=== PATIENT | female | born 1945 | race Two or more races ===

== ENCOUNTER → 2017-12-30 | Day surgery (SDC) | payer MEDICARE ==
[~2017-12-30] MED LIST: AMLO10TA6 PO; APIX5TAB PO; ATOR40TA PO; FLUO20CA8 PO; GABA-587 PO; LISI1TAB7 PO; OXYC-323 PO; PROPOFOL 20 ML IV ONE; VALP250S PO
[2017-12-30 15:30] VITALS: BP 114/55
--- NOTE | 2017-12-30 20:11 | CONS ---
DATE OF CONSULTATION: 12/30/2017 REASON FOR CONSULTATION: Improved oropharyngeal dysphagia and wanting G-tube removal. REFERRING PHYSICIAN: Dr. Airam Rudolph. HISTORY OF PRESENT ILLNESS: A 72-year-old female with past medical history significant for hypertension, history of CVA, status post PEG placement, history of hernia repair seen with improved swallowing. She is presently tolerating by mouth and wished to have the G-tube removed, has no additional complaints at the present time. PAST MEDICAL HISTORY: Oropharyngeal dysphagia, hypertension, status post hernia repair. ALLERGIES: None. MEDICATIONS: Include lisinopril/hydrochlorothiazide, Percocet. SOCIAL HISTORY: Retired. Does not drink or smoke. FAMILY HISTORY: Noncontributory. REVIEW OF SYSTEMS: Per records. PHYSICAL EXAMINATION: GENERAL: Reveals a well-nourished, well-developed female, who is alert, cooperative, and in no acute distress. VITAL SIGNS: Pulse 75, respirations 18, blood pressure 130/70. HEENT: Reveals normocephalic and atraumatic head. Pupils and extraocular muscles are not tested. Sclerae are anicteric. NECK: Supple. LUNGS: Clear. CARDIOVASCULAR: Reveals S1, S2 without S3, S4 or appreciable murmur. ABDOMEN: Exam reveals a soft abdomen. Normoactive bowel sounds with an intact G-tube in left upper quadrant and umbilical hernia scar. EXTREMITIES: Reveals no cyanosis, clubbing, or edema. IMPRESSION: Oropharyngeal dysphagia, improved. We will proceed with G-tube removal. Risks and benefits of procedure have been discussed with the patient's family including the risk of hemorrhage or perforation. The patient is willing to proceed. DAI ESTEBAN MD DR: AMBER/otilia JOB#: [id number] / [id number] AIRAM Thomason MD
== END | disposition home or self-care (01) ==
LOC: SURG 14:19
PROVIDERS: ATTEND Internal Medicine Gastroenterology
DX: Z46.59 Encounter for fitting and adjustment of other gastrointestinal appliance and device (principal); K29.50 Unspecified chronic gastritis without bleeding; I10 Essential (primary) hypertension; Z86.73 Personal history of transient ischemic attack (TIA), and cerebral infarction without residual deficits; Z98.890 Other specified postprocedural states; Z79.899 Other long term (current) drug therapy
CPT/HCPCS: 43247; J2704

== ENCOUNTER → 2018-03-12 | Day surgery (SDC) | payer MEDICARE ==
[~2018-03-12] MED LIST changes: +DIVA-53 PO; +HYDROmorphone 2 MG/ML VIAL IV PRN; +IV RINGERS,LACTATED 1000ML 1,000 ML IV SCH; +LIDOCAINE 1% PF 2 ML VIAL. ID PRN; +MORPHINE SULFATE 2 MG/ML VIAL. IV PRN; +ONDANSETRON PF 4 MG/2 ML VIAL. IV PRN; +PROCHLORPERAZINE 10 MG/2 ML VIAL. IV PRN; +Pantoprazole PO; +SUCR1ORA11 PO; +fentaNYL PF VIAL 100 MCG/2 ML VIAL IV PRN
[2018-03-12 14:50] VITALS: BP 107/53
--- NOTE | 2018-03-13 01:44 | CONS ---
DATE OF CONSULTATION: 03/12/2018 REASON FOR CONSULTATION: Gastric ulcer surveillance. REFERRING PHYSICIAN: Marco Rai MD. HISTORY OF PRESENT ILLNESS: A 72-year-old female whose past medical history is significant for AFib, CVA, DVT, hypertension, hyperlipidemia, improved oropharyngeal dysphagia, seen with gastric ulcers. She has been on medical therapy for 2 months. EGD with confirmation of healing is recommended as 2-4% ulcers are in fact gastric malignancies. She denies any additional pain at this time, gives minimal additional history. PAST MEDICAL HISTORY: AFib, status post cerebrovascular accident with improved oropharyngeal dysphagia, DVT, hypertension, hyperlipidemia. ALLERGIES: None. MEDICATIONS: Include amlodipine, Eliquis, atorvastatin, divalproex, Prozac, gabapentin, oxycodone, sucralfate, valproic acid, and pantoprazole. SOCIAL HISTORY: Does not drink or smoke. FAMILY HISTORY: Significant for coronary artery disease, diabetes, and hypertension. REVIEW OF SYSTEMS: Per records. PHYSICAL EXAMINATION: GENERAL: Reveals a well-nourished, well-developed female, who is alert, cooperative, and in no acute distress. VITAL SIGNS: Temperature 99.3, pulse 58, respiratory rate is 18. HEENT: Reveals normocephalic and atraumatic head. Pupils and extraocular muscles are not tested. Sclerae anicteric. NECK: Supple. LUNGS: Clear. CARDIOVASCULAR: Reveals an S1, S2 without S3, S4 or appreciable murmur. ABDOMEN: Reveals a soft abdomen, normal bowel sounds without appreciable hepatosplenomegaly. EXTREMITIES: Reveals no cyanosis, clubbing or edema. IMPRESSION: Gastric ulcer. Surveillance endoscopy to confirm healing is recommended as 2-4% of ulcers are in fact gastric cancers. Risks and benefits of procedure were discussed with patient and family, who are willing to proceed. DAI ESTEBAN MD DR: AMBER/otilia JOB#: [id number] / [id number]
--- NOTE | 2018-03-13 13:19 | PATHOLOGY ---
[facility] Accession Number: [id number] . 01 Material submitted: . GASTRIC ULCER BIOPSY . 01 Clinical history: . Gastric ulcer . 02 Diagnosis: "Gastric ulcer BX", biopsy: - Gastric mucosa with marked reactive/regenerative changes, edema, and mild acute and chronic inflammation. (See comment.) - Negative H. pylori immunohistochemical stain (block A1); control reacted appropriately. . (CLW:yue;03/13/2018) AGA/03/13/2018 . 02 Comment: While focal atypical glandular cells are noted, they are favored to be reactive. No overt epithelial malignancy is identified. Clinical and endoscopic correlation is required. . (CLW:yue;03/13/2018) . 02 Electronically signed: . Annmarie Abdi MD, Pathologist NPI- [id number] . 01 Gross description: . Received in formalin labeled "Lola Morales, gastric ulcer BX," are multiple segments of ayoub soft tissue measuring 1.5 x 0.5 x 0.1 cm in aggregate dimensions. The specimen is filtered and entirely submitted in cassette A1. (TSD; 03/12/2018) TOB/TOB . 02 Pathologist provided ICD-10: K29.00, K29.50 . 02 CPT . 048293, D05002 Specimen Comment: A courtesy copy of this report has been sent to Specimen Comment: [phone], . Specimen Comment: Report sent to / DR LARSON Specimen Comment: A duplicate report has been generated due to demographic updates. Performed at: [address], [place], [place] [id number] MD Ryan Lopez MD Phone: [phone] Performed at: [address] [id number] MD Jose Angel Turcios MD Phone: [phone]
== END ==
LOC: ENDOS 13:05 → EDSTATUS 14:00
PROVIDERS: ATTEND Internal Medicine Gastroenterology
DX: K25.9 Gastric ulcer, unspecified as acute or chronic, without hemorrhage or perforation (principal); K29.50 Unspecified chronic gastritis without bleeding; I10 Essential (primary) hypertension; E78.5 Hyperlipidemia, unspecified; I48.91 Unspecified atrial fibrillation; Z86.73 Personal history of transient ischemic attack (TIA), and cerebral infarction without residual deficits; Z86.718 Personal history of other venous thrombosis and embolism; Z79.899 Other long term (current) drug therapy; Z82.49 Family history of ischemic heart disease and other diseases of the circulatory system; Z83.3 Family history of diabetes mellitus
CPT/HCPCS: 43239; 88305; 88342; J2704

== ENCOUNTER → 2018-06-25 | Day surgery (SDC) | payer MEDICARE ==
[~2018-06-25] MED LIST changes: -AMLO10TA6 PO; +AMLO10TA8 PO; -GABA-587 PO; +GABA-689 PO; -MORPHINE SULFATE 2 MG/ML VIAL. IV PRN; +MORPHINE SULFATE 4 MG/ML VIAL. IV PRN; -OXYC-323 PO; +OXYC1TAB15 PO
[2018-06-25 13:45] VITALS: BP 111/55
--- NOTE | 2018-06-25 19:42 | CONS ---
DATE OF CONSULTATION: REASON FOR AMENDMENT: Premature disconnection from the dictation. ALLERGIES: None. MEDICATIONS: Amlodipine, Eliquis, Lipitor, Prozac, gabapentin, oxycodone, Carafate, valproic, Protonix. FAMILY AND SOCIAL HISTORY: Significant for coronary artery disease, diabetes, hypertension. Nonsmoker, nondrinker. REVIEW OF SYSTEMS: Per records. PHYSICAL EXAMINATION: GENERAL: Reveals a well-developed, well-nourished female, alert, cooperative, no acute distress. VITAL SIGNS: Temperature 99.3, pulse is 70, respirations 20. HEENT: Normocephalic and atraumatic head. Pupils and extraocular muscles are not tested. Sclerae anicteric. NECK: Supple. LUNGS: Clear. CARDIOVASCULAR: Reveals S1, S2 without S3, S4 or appreciable murmur. ABDOMEN: Reveals a soft abdomen, normal bowel sounds without appreciable hepatosplenomegaly. EXTREMITIES: Reveal no cyanosis, clubbing, edema. IMPRESSION: Gastric ulcer. Surveillance endoscopy to confirm healing is recommended as 2-4% gastric ulcers are malignancies. Risks and benefits have been discussed. The patient is willing to proceed at this time. DAI ESTEBAN MD DR: AMBER/otilia JOB#: [id number] / [id number]
--- NOTE | 2018-06-25 19:46 | CONS ---
DATE OF CONSULTATION: 06/25/2018 REASON FOR CONSULTATION: History of gastric ulcer. Surveillance endoscopy. HISTORY OF PRESENT ILLNESS: A 72-year-old female with past medical history significant for AFib; DVT; history of CVA, on Eliquis; has had a PEG removed, is seen after treatment for the gastric ulcer. She is tolerating p.o. She is on sucralfate, Protonix 40 mg daily. Denies any dysphagia, odynophagia, additional complaints presently. PAST MEDICAL HISTORY: AFib, CVA, DVT, hypertension, hyperlipidemia, diverticulosis. ALLERGIES: None. MEDICATIONS: Include amlodipine DICTATION ENDS HERE. DAI ESTEBAN MD DR: AMBER/otilia JOB#: [id number] / [id number]
--- NOTE | 2018-06-26 14:09 | PATHOLOGY ---
[facility] Accession Number: [id number] . 01 Material submitted: . GASTRIC ANTRUM ULCER . 01 Clinical history: . Recurrent ulcer . 02 Diagnosis: Stomach, "gastric antrum ulcer", biopsy: - Superficial fragments of gastric mucosa with mild chronic inflammation and focal ulceration with associated acute ulcer exudate. - No evidence of Helicobacter pylori on immunoperoxidase stain. (SKM:pit 06/26/2018) QTP/06/26/2018 . 02 Electronically signed: . Riky Grimm MD, Pathologist NPI- [id number] . 01 Gross description: . Received in formalin labeled "Lola Morales, gastric antrum ulcer," are multiple segments of ayoub soft tissue measuring 1.2 x 0.1 x 0.1 cm in aggregate dimensions. The specimen is filtered and submitted entirely in cassette A1. (TSD; 06/25/2018) TOB/TOB . 02 Pathologist provided ICD-10: K29.30, K25.3 . 02 CPT . 102294 Specimen Comment: A courtesy copy of this report has been sent to Specimen Comment: [phone], . Specimen Comment: Report sent to / DR RICE Performed at: 01 [facility] [address], [place], [place] [id number] MD Ryan Lopez MD Phone: [phone] Performed at: 02 [facility] [address] [place], [place] [id number] MD Jose Angel Turcios MD Phone: [phone]
== END | disposition home or self-care (01) ==
LOC: ENDOS 11:37
PROVIDERS: ATTEND Internal Medicine Gastroenterology
DX: K25.3 Acute gastric ulcer without hemorrhage or perforation (principal); K25.7 Chronic gastric ulcer without hemorrhage or perforation; K29.30 Chronic superficial gastritis without bleeding; I10 Essential (primary) hypertension; E78.5 Hyperlipidemia, unspecified; Z86.73 Personal history of transient ischemic attack (TIA), and cerebral infarction without residual deficits; Z86.718 Personal history of other venous thrombosis and embolism; I48.91 Unspecified atrial fibrillation; Z79.899 Other long term (current) drug therapy; Z83.3 Family history of diabetes mellitus; Z82.49 Family history of ischemic heart disease and other diseases of the circulatory system
CPT/HCPCS: 43239; 88305; 88342; J2704

== ENCOUNTER 2018-07-03 17:19 | Inpatient (IN) | payer MEDICARE ==
[~2018-07-03] VITALS: Ht 149.9 cm; Wt 62.3 kg
[~2018-07-03 17:19] MED LIST changes: -HYDROmorphone 2 MG/ML VIAL IV PRN; -IV RINGERS,LACTATED 1000ML 1,000 ML IV SCH; -LIDOCAINE 1% PF 2 ML VIAL. ID PRN; -MORPHINE SULFATE 4 MG/ML VIAL. IV PRN; -ONDANSETRON PF 4 MG/2 ML VIAL. IV PRN; -PROCHLORPERAZINE 10 MG/2 ML VIAL. IV PRN; -PROPOFOL 20 ML IV ONE; -fentaNYL PF VIAL 100 MCG/2 ML VIAL IV PRN
[2018-07-03] MEDS ORDERED: IV NORMAL SALINE 1000ML BAG 1,000 ML IV ONE (17:30)
[2018-07-03 17:46] LABS: BILIRUBIN,URINE NEGATIVE (NEG); CLARITY,URINE CLEAR; COLOR,URINE YELLOW; NITRITE,URINE NEGATIVE (NEG); PH,URINE 7.5; PROTEIN,URINE 100 mg/dL (NEG-TRACE)
[2018-07-03 17:54] LABS: AMPHETAMINE/METHAMPHETAMINE NEG (NEG); BARBITURATES NEG (NEG); BENZODIAZEPINES NEG (NEG); CANNABINOIDS NEG (NEG); COCAINE NEG (NEG); METHADONE NEG (NEG); OPIATES NEG (NEG); PHENCYCLIDINE NEG (NEG)
[2018-07-03 17:58] LABS: BACTERIA,URINE 0 /HPF (0-FEW); RBC,URINE OCC /HPF (0-2); WBC,URINE OCC /HPF (0-4)
[2018-07-03 18:31] LABS: BASO % 1 % (0-3); EOS # 0.1 x10^3/uL (0.0-0.7); EOS % 1 % (0-3); HEMATOCRIT 43.2 % (36.0-47.0); HEMOGLOBIN 14.4 g/dL (12.0-15.5); LYMPH # 0.8 x10^3/uL (1.0-4.8); LYMPH % 12 % (24-48); MEAN CORPUSCULAR HEMOGLOBIN 31 pg (25-35); MEAN CORPUSCULAR HGB CONC 33 g/dL (31-37); MEAN CORPUSCULAR VOLUME 94 fL (79-100); MONO # 0.3 x10^3/uL (0.0-1.1); MONO % 5 % (0-9); NEUT # 5.1 x10^3uL (1.8-7.7); NEUT % 81 % (31-73); PLATELET COUNT 197 x10^3/uL (140-400); RED BLOOD COUNT 4.62 x10^6/uL (3.50-5.40); RED CELL DISTRIBUTION WIDTH 14.7 % (11.5-14.5); WHITE BLOOD COUNT 6.3 x10^3/uL (4.0-11.0)
[2018-07-03 18:40] LABS: PROTHROMBIN TIME PATIENT 15.1 SEC (11.7-14.0)
[2018-07-03 19:13] LABS: CREATINE KINASE 27 U/L (26-192)
--- NOTE | 2018-07-03 19:13 | PHYS DOC ---
Past Medical History Past Medical History: Hypertension, Seizure, Stroke, Other Additional Past Medical Histor: hernia, ULCERS Past Surgical History: No Surgical History Alcohol Use: None Drug Use: None Adult General Chief Complaint Chief Complaint: SEIZURE HPI HPI 72-year-old female presents via EMS with report of seizure-like activity at home which occurred at approximate 1630 and lasted 2-3 minutes. Patient does have a history of prior seizures for which she has been taking Depakote. Patient has been weaning down on her dosing of Depakote since the end of March. Patient does report compliance with her medications. Patient denies any current pain. Denies any trauma. Patient is unsure of circumstance that brought her to the ER. Patient does have a history of prior CVA with focal left- sided deficit. Patient does use blood thinner- Eliquis. Denies fever or chills. Denies chest pain. Review of Systems Review of Systems Constitutional: Denies fever or chills [] Eyes: Denies change in visual acuity, redness, or eye pain [] HENT: Denies nasal congestion or sore throat [] Respiratory: Denies cough or shortness of breath [] Cardiovascular: Denies chest pain or palpitations GI: Denies abdominal pain, nausea, vomiting, or diarrhea [] : Denies dysuria or hematuria [] Musculoskeletal: Denies back pain or joint pain [] Integument: Denies rash or skin lesions [] Neurologic: Reports seizure activity; reports LOC Complete systems were reviewed and found to be within normal limits, except as documented in this note. Current Medications Current Medications Current Medications Medications (Trade) Dose Ordered Sig/Kylee Start Time Stop Time Status Last Admin Dose Admin Lorazepam (Ativan) 2 mg STK-MED ONCE 07/03/18 18:12 07/03/18 18:13 DC Sodium Chloride 1,000 ml @ 1,000 mls/hr 1X ONCE 07/03/18 17:30 07/03/18 18:29 DC 07/03/18 17:30 1,000 MLS/HR Allergies Allergies Allergies Coded Allergies Type Severity Reaction Last Updated Verified No Known Drug Allergies 06/25/18 No Physical Exam Physical Exam Constitutional: Well developed, well nourished, no acute distress, non-toxic appearance. [] HENT: Normocephalic, atraumatic, oropharynx moist Eyes: PERRL, EOMI, conjunctiva normal, no discharge. [] Neck: Normal range of motion, no midline tenderness, supple Cardiovascular: Heart rate regular rhythm, no murmur [] Lungs & Thorax: Bilateral breath sounds clear to auscultation [] Abdomen: Soft, no tenderness] Skin: Warm, dry, no erythema, no rash. [] Extremities: No tenderness, no edema. [] Neurologic: Alert and oriented X 3, focal deficits noted to left arm and leg. Strength: LUE 1/5, LLE 2/5, RUE 5/5, and RLE 5/5; reports baseline left sided sensory deficit Psychologic: Affect normal, judgement normal, mood normal. [] Current Patient Data Vital Signs Vital Signs Date Time Temp Pulse Resp B/P (MAP) Pulse Ox O2 Delivery O2 Flow Rate FiO2 07/03/18 17:45 98.2 91 16 118/60 (79) 96 Nasal Cannula 2.0 98.2 Lab Values Laboratory Tests Test 07/03/18 17:35 07/03/18 18:17 Urine Collection Type U cath Urine Color Yellow Urine Clarity Clear Urine pH 7.5 Urine Specific [place] 1.015 Urine Protein 100 mg/dL (NEG-TRACE) Urine Glucose (UA) Negative mg/dL (NEG) Urine Ketones (Stick) Negative mg/dL (NEG) Urine Blood Negative (NEG) Urine Nitrite Negative (NEG) Urine Bilirubin Negative (NEG) Urine Urobilinogen Dipstick 1.0 mg/dL (0.2 mg/dL) Urine Leukocyte Esterase Negative (NEG) Urine RBC Occ /HPF (0-2) Urine WBC Occ /HPF (0-4) Urine Bacteria 0 /HPF (0-FEW) Urine Mucus Slight /LPF Urine Opiates Screen Neg (NEG) Urine Methadone Screen Neg (NEG) Urine Barbiturates Neg (NEG) Urine Phencyclidine Screen Neg (NEG) Urine Amphetamine/Methamphetamine Neg (NEG) Urine Benzodiazepines Screen Neg (NEG) Urine Cocaine Screen Neg (NEG) Urine Cannabinoids Screen Neg (NEG) Urine Ethyl Alcohol Neg (NEG) White Blood Count 6.3 x10^3/uL (4.0-11.0) Red Blood Count 4.62 x10^6/uL (3.50-5.40) Hemoglobin 14.4 g/dL (12.0-15.5) Hematocrit 43.2 % (36.0-47.0) Mean Corpuscular Volume 94 fL (79-100) Mean Corpuscular Hemoglobin 31 pg (25-35) Mean Corpuscular Hemoglobin Concent 33 g/dL (31-37) Red Cell Distribution Width 14.7 % (11.5-14.5) H Platelet Count 197 x10^3/uL (140-400) Neutrophils (%) (Auto) 81 % (31-73) H Lymphocytes (%) (Auto) 12 % (24-48) L Monocytes (%) (Auto) 5 % (0-9) Eosinophils (%) (Auto) 1 % (0-3) Basophils (%) (Auto) 1 % (0-3) Neutrophils # (Auto) 5.1 x10^3uL (1.8-7.7) Lymphocytes # (Auto) 0.8 x10^3/uL (1.0-4.8) L Monocytes # (Auto) 0.3 x10^3/uL (0.0-1.1) Eosinophils # (Auto) 0.1 x10^3/uL (0.0-0.7) Basophils # (Auto) 0.0 x10^3/uL (0.0-0.2) Prothrombin Time 15.1 SEC (11.7-14.0) H Prothrombin Time INR 1.2 (0.8-1.1) H PTT 36 SEC (24-38) Sodium Level 144 mmol/L (136-145) Potassium Level 3.6 mmol/L (3.5-5.1) Chloride Level 104 mmol/L (98-107) Carbon Dioxide Level 30 mmol/L (21-32) Anion Gap 10 (6-14) Blood Urea Nitrogen 16 mg/dL (7-20) Creatinine 0.6 mg/dL (0.6-1.0) Estimated GFR (Cockcroft-Gault) 98.8 BUN/Creatinine Ratio 27 (6-20) H Glucose Level 117 mg/dL (70-99) H Lactic Acid Level 1.9 mmol/L (0.4-2.0) Calcium Level 9.6 mg/dL (8.5-10.1) Magnesium Level 2.0 mg/dL (1.8-2.4) Total Bilirubin 0.3 mg/dL (0.2-1.0) Aspartate Amino Transferase (AST) 20 U/L (15-37) Alanine Aminotransferase (ALT) 18 U/L (14-59) Alkaline Phosphatase 87 U/L (46-116) Ammonia 8 mcmol/L (11-34) L Creatine Kinase 27 U/L (26-192) Creatine Kinase MB (Mass) < 0.5 ng/mL (0.0-3.6) Creatine Kinase MB Relative Index 1.9 % (0-4) Troponin I Quantitative < 0.017 ng/mL (0.000-0.055) Total Protein 7.9 g/dL (6.4-8.2) Albumin 3.3 g/dL (3.4-5.0) L Albumin/Globulin Ratio 0.7 (1.0-1.7) L Valproic Acid Level 35 mcg/mL (50-100) L Valproic Acid Last Dose Date Unk Valproic Acid Last Dose Time Unk Laboratory Tests 07/03/18 18:17 Laboratory Tests 07/03/18 18:17 EKG EKG @1759 NSR at 74bpm, NO ST elevation, baseline artifact Radiology/Procedures Radiology/Procedures PROCEDURE: CT HEAD WO CONTRAST Examination: CT HEAD WO CONTRAST History: seizure activity Comparison/Correlation: None Findings: Axial images of the head were obtained without contrast. Atrophy is present. Mild volume loss ventriculomegaly noted. No intracranial hemorrhage. Extensive right middle cerebral arterial distribution infarct is present. This predominantly involves the posterior right frontoparietal and temporal region. Infarct involvement of the right occipital lobe is also present. Infarct involvement of the right external capsule and right thalamus noted. Mucosal thickening of ethmoid air cells noted. Bony structures are unremarkable. Impression: Extensive right middle cerebral artery distribution infarct is present. There is effacement of the right temporoparietal gyri in particular compatible with late acute or subacute infarct age. PQRS Compliance Statement: One or more of the following individualized dose reduction techniques were utilized for this examination: 1. Automated exposure control 2. Adjustment of the mA and/or kV according to patient size 3. Use of iterative reconstruction technique Electronically signed by: Sina Quezada MD (07/03/2018 7:14 PM) [facility] PROCEDURE: CHEST AP ONLY EXAM: Chest, single view. HISTORY: Altered mental status. COMPARISON: 01/09/2018 FINDINGS: A frontal view of the chest obtained. There is stable mild interstitial prominence without enid congestion. There is mild stable elevation of the right hemidiaphragm. There is no pleural effusion or pneumothorax. The heart is normal in size for portable technique. IMPRESSION: No acute pulmonary finding. Electronically signed by: Zainab Galicia MD (07/03/2018 7:55 PM) [facility] Course & Med Decision Making Course & Med Decision Making Pertinent Labs and Imaging studies reviewed. (See chart for details) Patient with past medical history of seizures presents with report of seizure- like activity while at home which was witnessed by her . The reports lasted approximately 2-3 minutes. Patient has been weaned down on her Depakote. Denies pain at this time. Patient neurologically at baseline. History of significant ischemic stroke with subsequent left-sided deficit. Family and patient reports she is currently at her baseline. CT head without acute process. Chest x-ray clear. Labs obtained and posted to chart. Depakote level noted to be subtherapeutic. Patient requiring admission for further evaluation and treatment. Discussed with Dr. Garcia (hospitalist) who is in agreement with admission. Discussed with Dr. Friend (neurology) regarding. In agreement with consultation. Due to subtherapeutic valproic acid level, Dr. Friend requesting to go back to 500mg BID. Order placed. Discussed findings and plan with patient and family, who acknowledge understanding and agreement. Dragon Disclaimer Dragon Disclaimer This electronic medical record was generated, in whole or in part, using a voice recognition dictation system. Departure Departure Impression: Primary Impression: Breakthrough seizure Disposition: 09 ADMITTED INPATIENT Admitting Physician: Bulmaro Garcia Condition: STABLE Referrals: AIRAM RICE MD (PCP) JOSE ERNANDEZ DO Jul 03, 2018 19:13
[2018-07-03 19:14] LABS: ALBUMIN 3.3 g/dL (3.4-5.0); ALBUMIN/GLOBULIN RATIO 0.7 (1.0-1.7); ALK PHOS 87 U/L (46-116); ALT (SGPT) 18 U/L (14-59); ANION GAP 10 (6-14); AST (SGOT) 20 U/L (15-37); BLOOD UREA NITROGEN 16 mg/dL (7-20); BUN/CREATININE RATIO 27 (6-20); CALCIUM 9.6 mg/dL (8.5-10.1); CARBON DIOXIDE 30 mmol/L (21-32); CHLORIDE 104 mmol/L (98-107); CREATININE 0.6 mg/dL (0.6-1.0); GFR 98.8; GLUCOSE 117 mg/dL (70-99); POTASSIUM 3.6 mmol/L (3.5-5.1); SODIUM 144 mmol/L (136-145); TOTAL BILIRUBIN 0.3 mg/dL (0.2-1.0); TOTAL PROTEIN 7.9 g/dL (6.4-8.2); VAL ACID 35 mcg/mL (50-100)
--- NOTE | 2018-07-03 19:17 | RAD ---
Examination: CT HEAD WO CONTRAST History: seizure activity Comparison/Correlation: None Findings: Axial images of the head were obtained without contrast. Atrophy is present. Mild volume loss ventriculomegaly noted. No intracranial hemorrhage. Extensive right middle cerebral arterial distribution infarct is present. This predominantly involves the posterior right frontoparietal and temporal region. Infarct involvement of the right occipital lobe is also present. Infarct involvement of the right external capsule and right thalamus noted. Mucosal thickening of ethmoid air cells noted. Bony structures are unremarkable. Impression: Extensive right middle cerebral artery distribution infarct is present. There is effacement of the right temporoparietal gyri in particular compatible with late acute or subacute infarct age. PQRS Compliance Statement: One or more of the following individualized dose reduction techniques were utilized for this examination: 1. Automated exposure control 2. Adjustment of the mA and/or kV according to patient size 3. Use of iterative reconstruction technique Electronically signed by: Sina Quezada MD (07/03/2018 7:14 PM) [facility]
[2018-07-03] MEDS ORDERED: ONDANSETRON PF 4 MG/2 ML VIAL. IV PRN (19:30)
--- NOTE | 2018-07-03 19:58 | RAD ---
EXAM: Chest, single view. HISTORY: Altered mental status. COMPARISON: 01/09/2018 FINDINGS: A frontal view of the chest obtained. There is stable mild interstitial prominence without enid congestion. There is mild stable elevation of the right hemidiaphragm. There is no pleural effusion or pneumothorax. The heart is normal in size for portable technique. IMPRESSION: No acute pulmonary finding. Electronically signed by: Zainab Galicia MD (07/03/2018 7:55 PM) [facility]
[2018-07-03 21:00] VITALS: BP 140/53
[2018-07-03] MEDS ORDERED: oxyCODONE/APAP 5/325 1 TAB TABLET PO PRN ×2 (22:15→22:30)
[2018-07-03] MEDS ORDERED: ANTI-COAG MONITOR BY PHARMACY. MC PRN (22:30)
[2018-07-03] MEDS: APIXABAN 5 MG TABLET. PO SCH (22:59)
[2018-07-03] MEDS: DIVALPROEX DELAYED RELEASE 500 MG TABLET.DR. PO SCH (22:59)
[2018-07-03] MEDS ORDERED: GABAPENTIN 400 MG CAPSULE. PO SCH (23:00)
[2018-07-03] MEDS ORDERED: ATORVASTATIN CALCIUM 40 MG TABLET. PO SCH (23:00)
[2018-07-03 23:21] VITALS: BP 141/69
[2018-07-04 03:25] VITALS: BP 135/54
[2018-07-04 07:00] VITALS: BP 114/54
[2018-07-04] MEDS: SUCRALFATE 1 GM TABLET. PO SCH ×2 (07:30→16:37)
[2018-07-04] MEDS: PANTOPRAZOLE 40 MG TABLET.DR. PO SCH ×2 (08:59→16:37)
[2018-07-04] MEDS ORDERED: APIXABAN 5 MG TABLET. PO SCH (09:00)
[2018-07-04] MEDS ORDERED: FLUoxetine HCL 20 MG CAPSULE PO SCH (09:00)
[2018-07-04] MEDS ORDERED: amLODIPine BESYLATE 10 MG TABLET PO SCH (09:00)
[2018-07-04] MEDS: APIXABAN 5 MG TABLET. PO SCH (09:01)
[2018-07-04] MEDS: DIVALPROEX DELAYED RELEASE 500 MG TABLET.DR. PO SCH (09:01)
--- NOTE | 2018-07-04 10:25 | EKG ---
[facility] [address] [place] [address] Test Date: 2018-07-03 Test Time: 17:59:08 Pat Name: LISA RAMÍREZ Department: Room: 671 1 Gender: F Manager Media Relations: : 1945 Requested By: JOSE ERNANDEZ Order Number: [id number] Reading MD: Juancho Matamoros Measurements Intervals [place] Rate: 74 P: NM: QRS: -22 QRSD: 84 T: 28 QT: 482 QTc: 536 Interpretive Statements SINUS RHYTHM LEFTWARD AXIS QRS(T) CONTOUR ABNORMALITY CONSIDER ANTEROLATERAL MYOCARDIAL DAMAGE PROLONGED QT POSSIBLY ABNORMAL ECG Electronically Signed On 07-07-2018 11:08:17 [employer] by Juancho Matamoros
[2018-07-04] MEDS ORDERED: ACETAMINOPHEN 325 MG TABLET. PO PRN (10:30)
[2018-07-04 11:00] VITALS: BP 109/42
--- NOTE | 2018-07-04 11:09 | PDOC1 ---
History and Physical Date of Admission Date of Admission DATE: 07/04/18 TIME: 11:09 Identification/Chief Complaint Chief Complaint SEEN IN ER , 72-year-old female presents via EMS with report of seizure-like activity at home which occurred at approximate 1630 3/ and lasted 2-3 minutes. Patient does have a history of prior seizures for which she has been taking Depakote. has been weaning down on her dosing of Depakote since the end of Past Medical History Past Medical History Past Medical History Past Medical History: Hypertension, Seizure, Stroke, Other Additional Past Medical Histor: hernia, ULCERS Past Surgical History: No Surgical History Alcohol Use: None Drug Use: None family hx htn Cardiovascular: AFIB, HTN, Hyperlipidemia CENTRAL NERVOUS SYSTEM: CVA GI: GERD Past Surgical History Past Surgical History: Hernia Repair, Other Family History Family History: Coronary Artery Disease, Diabetes, Hypertension Social History Smoke: No ALCOHOL: rare Drugs: None Current Problem List Problem List Problems Medical Problems: (1) Breakthrough seizure Status: Acute Current Medications Current Medications Current Medications Sodium Chloride 1,000 ml @ 1,000 mls/hr 1X ONCE IV Last administered on at 17:30; Start 07/03/18 at 17:30; Stop 07/03/18 at 18:29; Status DC Lorazepam (Ativan) 1 mg 1X ONCE IV Last administered on 07/03/18at 18:15; Start 07/03/18 at 18:15; Stop 07/03/18 at 18:16; Status DC Lorazepam (Ativan) 2 mg STK-MED ONCE .ROUTE ; Start 07/03/18 at 18:12; Stop at 18:13; Status DC Ondansetron HCl (Zofran) 4 mg PRN Q8HRS PRN IV NAUSEA/VOMITING; Start 07/03/18 at 19:30; Stop 07/04/18 at 19:29 Divalproex Sodium (Depakote) 500 mg BID PO Last administered on 07/04/18at 09:01 ; Start 07/03/18 at 21:00 Amlodipine Besylate (Norvasc) 10 mg DAILY PO ; Start 07/04/18 at 09:00 Apixaban (Eliquis) 5 mg DAILY PO ; Start 07/04/18 at 09:00; Status Cancel Atorvastatin Calcium (Lipitor) 40 mg QHS PO ; Start 07/03/18 at 23:00 Fluoxetine HCl (PROzac) 20 mg DAILY PO Last administered on 07/04/18at 08:59; Start 07/04/18 at 09:00 Gabapentin (Neurontin) 600 mg HS PO Last administered on 07/03/18at 23:00; Start 07/03/18 at 23:00 Oxycodone/ Acetaminophen (Percocet 5/325) 1 tab PRN Q6HRS PRN PO MODERATE PAIN ; Start 07/03/18 at 22:15 Sucralfate (Carafate) 1 gm BIDAC PO ; Start 07/04/18 at 07:30 Pantoprazole Sodium (Protonix) 40 mg BIDAC PO Last administered on 07/04/18at 08: 59; Start 07/04/18 at 07:30 Info (Anti-Coagulation Monitoring By Pharmacy) 1 each PRN DAILY PRN MC SEE COMMENTS Last administered on 07/03/18at 23:48; Start 07/03/18 at 22:30 Oxycodone/ Acetaminophen (Percocet 5/325) 2 tab PRN Q6HRS PRN PO SEVERE PAIN; Start 07/03/18 at 22:30 Apixaban (Eliquis) 5 mg BID PO Last administered on 07/04/18at 09:01; Start at 23:00 Acetaminophen (Tylenol) 650 mg PRN Q6HRS PRN PO pain Last administered on at 10:31; Start 07/04/18 at 10:30 Active Scripts Active [Pantoprazole] 40 MG Tablet.dr 40 Mg PO BIDAC Percocet 5-325 Mg Tablet (Oxycodone/Acetaminophen) 1 Each Tablet 1-2 Tab PO Q4-6HRS Reported Sucralfate 1 Gm/10 Ml Oral.susp 1 Gm PO BIDAC Divalproex Sodium 500 Mg Tablet. 250 Mg PO DAILY Eliquis (Apixaban) 5 Mg Tablet 5 Mg PO DAILY Depakene (Valproate Sodium) 250 Mg/5 Ml Solution 250 Mg PO Q12HR Gabapentin (Gabapentin) 400 Mg Capsule 600 Mg PO HS Fluoxetine Hcl 20 Mg Capsule 1 Cap PO DAILY Lipitor (Atorvastatin Calcium) 40 Mg Tablet 1 Tab PO QHS Amlodipine Besylate 10 Mg Tablet 10 Mg PO DAILY Allergies Allergies: Coded Allergies: No Known Drug Allergies (Unverified , 06/25/18) ROS Review of System Review of Systems Review of Systems Constitutional: Denies fever or chills [] Eyes: Denies change in visual acuity, redness, or eye pain [] HENT: Denies nasal congestion or sore throat [] Respiratory: Denies cough or shortness of breath [] Cardiovascular: Denies chest pain or palpitations GI: Denies abdominal pain, nausea, vomiting, or diarrhea [] : Denies dysuria or hematuria [] Musculoskeletal: Denies back pain or joint pain [] Integument: Denies rash or skin lesions [] Neurologic: Reports seizure activity; reports LOC 14 PT systems were reviewed and found to be within normal limits, except as documented Physical Exam Physical Exam Physical Exam Physical Exam Constitutional: Well developed, well nourished, no acute distress, non-toxic appearance. [] HENT: Normocephalic, atraumatic, oropharynx moist Eyes: PERRL, EOMI, conjunctiva normal, no discharge. [] Neck: Normal range of motion, no midline tenderness, supple Cardiovascular: Heart rate regular rhythm, no murmur [] Lungs & Thorax: Bilateral breath sounds clear to auscultation [] Abdomen: Soft, no tenderness] Skin: Warm, dry, no erythema, no rash. [] Extremities: No tenderness, no edema. [] Neurologic: Alert and oriented X 3, focal deficits noted to left arm and leg. Strength: LUE 1/5, LLE 2/5, RUE 5/5, and RLE 5/5; reports baseline left sided sensory deficit Psychologic: Affect normal, judgement normal, mood normal. [] Breasts: Not examined Vitals Vitals Vital Signs Date Time Temp Pulse Resp B/P (MAP) Pulse Ox O2 Delivery O2 Flow Rate FiO2 07/04/18 09:00 63 114/54 07/04/18 08:00 Room Air 2.0 07/04/18 07:00 98.2 18 97 98.2 Labs Labs Laboratory Tests Test 07/03/18 17:35 07/03/18 18:17 07/04/18 00:05 07/04/18 02:30 Urine Collection Type U cath Urine Color Yellow Urine Clarity Clear Urine pH 7.5 Urine Specific [place] 1.015 Urine Protein 100 mg/dL (NEG-TRACE) Urine Glucose (UA) Negative mg/dL (NEG) Urine Ketones (Stick) Negative mg/dL (NEG) Urine Blood Negative (NEG) Urine Nitrite Negative (NEG) Urine Bilirubin Negative (NEG) Urine Urobilinogen Dipstick 1.0 mg/dL (0.2 mg/dL) Urine Leukocyte Esterase Negative (NEG) Urine RBC Occ /HPF (0-2) Urine WBC Occ /HPF (0-4) Urine Bacteria 0 /HPF (0-FEW) Urine Mucus Slight /LPF Urine Opiates Screen Neg (NEG) Urine Methadone Screen Neg (NEG) Urine Barbiturates Neg (NEG) Urine Phencyclidine Screen Neg (NEG) Urine Amphetamine/Methamphetamine Neg (NEG) Urine Benzodiazepines Screen Neg (NEG) Urine Cocaine Screen Neg (NEG) Urine Cannabinoids Screen Neg (NEG) Urine Ethyl Alcohol Neg (NEG) White Blood Count 6.3 x10^3/uL (4.0-11.0) Red Blood Count 4.62 x10^6/uL (3.50-5.40) Hemoglobin 14.4 g/dL (12.0-15.5) Hematocrit 43.2 % (36.0-47.0) Mean Corpuscular Volume 94 fL (79-100) Mean Corpuscular Hemoglobin 31 pg (25-35) Mean Corpuscular Hemoglobin Concent 33 g/dL (31-37) Red Cell Distribution Width 14.7 % (11.5-14.5) Platelet Count 197 x10^3/uL (140-400) Neutrophils (%) (Auto) 81 % (31-73) Lymphocytes (%) (Auto) 12 % (24-48) Monocytes (%) (Auto) 5 % (0-9) Eosinophils (%) (Auto) 1 % (0-3) Basophils (%) (Auto) 1 % (0-3) Neutrophils # (Auto) 5.1 x10^3uL (1.8-7.7) Lymphocytes # (Auto) 0.8 x10^3/uL (1.0-4.8) Monocytes # (Auto) 0.3 x10^3/uL (0.0-1.1) Eosinophils # (Auto) 0.1 x10^3/uL (0.0-0.7) Basophils # (Auto) 0.0 x10^3/uL (0.0-0.2) Prothrombin Time 15.1 SEC (11.7-14.0) Prothromb Time International Ratio 1.2 (0.8-1.1) Activated Partial Thromboplast Time 36 SEC (24-38) Sodium Level 144 mmol/L (136-145) Potassium Level 3.6 mmol/L (3.5-5.1) Chloride Level 104 mmol/L (98-107) Carbon Dioxide Level 30 mmol/L (21-32) Anion Gap 10 (6-14) Blood Urea Nitrogen 16 mg/dL (7-20) Creatinine 0.6 mg/dL (0.6-1.0) Estimated GFR (Cockcroft-Gault) 98.8 BUN/Creatinine Ratio 27 (6-20) Glucose Level 117 mg/dL (70-99) Lactic Acid Level 1.9 mmol/L (0.4-2.0) Calcium Level 9.6 mg/dL (8.5-10.1) Magnesium Level 2.0 mg/dL (1.8-2.4) Total Bilirubin 0.3 mg/dL (0.2-1.0) Aspartate Amino Transf (AST/SGOT) 20 U/L (15-37) Alanine Aminotransferase (ALT/SGPT) 18 U/L (14-59) Alkaline Phosphatase 87 U/L (46-116) Ammonia 8 mcmol/L (11-34) Creatine Kinase 27 U/L (26-192) Creatine Kinase MB (Mass) < 0.5 ng/mL (0.0-3.6) Creatine Kinase MB Relative Index 1.9 % (0-4) Troponin I Quantitative < 0.017 ng/mL (0.000-0.055) < 0.017 ng/mL (0.000-0.055) < 0.017 ng/mL (0.000-0.055) Total Protein 7.9 g/dL (6.4-8.2) Albumin 3.3 g/dL (3.4-5.0) Albumin/Globulin Ratio 0.7 (1.0-1.7) Valproic Acid (Depakene) Level 35 mcg/mL (50-100) Valproic Acid Last Dose Date Unk Valproic Acid Last Dose Time Unk Laboratory Tests Test 07/03/18 17:35 3/1/19 18:17 07/04/18 00:05 07/04/18 02:30 Urine Collection Type U cath Urine Color Yellow Urine Clarity Clear Urine pH 7.5 Urine Specific [place] 1.015 Urine Protein 100 mg/dL (NEG-TRACE) Urine Glucose (UA) Negative mg/dL (NEG) Urine Ketones (Stick) Negative mg/dL (NEG) Urine Blood Negative (NEG) Urine Nitrite Negative (NEG) Urine Bilirubin Negative (NEG) Urine Urobilinogen Dipstick 1.0 mg/dL (0.2 mg/dL) Urine Leukocyte Esterase Negative (NEG) Urine RBC Occ /HPF (0-2) Urine WBC Occ /HPF (0-4) Urine Bacteria 0 /HPF (0-FEW) Urine Mucus Slight /LPF Urine Opiates Screen Neg (NEG) Urine Methadone Screen Neg (NEG) Urine Barbiturates Neg (NEG) Urine Phencyclidine Screen Neg (NEG) Urine Amphetamine/Methamphetamine Neg (NEG) Urine Benzodiazepines Screen Neg (NEG) Urine Cocaine Screen Neg (NEG) Urine Cannabinoids Screen Neg (NEG) Urine Ethyl Alcohol Neg (NEG) White Blood Count 6.3 x10^3/uL (4.0-11.0) Red Blood Count 4.62 x10^6/uL (3.50-5.40) Hemoglobin 14.4 g/dL (12.0-15.5) Hematocrit 43.2 % (36.0-47.0) Mean Corpuscular Volume 94 fL (79-100) Mean Corpuscular Hemoglobin 31 pg (25-35) Mean Corpuscular Hemoglobin Concent 33 g/dL (31-37) Red Cell Distribution Width 14.7 % (11.5-14.5) Platelet Count 197 x10^3/uL (140-400) Neutrophils (%) (Auto) 81 % (31-73) Lymphocytes (%) (Auto) 12 % (24-48) Monocytes (%) (Auto) 5 % (0-9) Eosinophils (%) (Auto) 1 % (0-3) Basophils (%) (Auto) 1 % (0-3) Neutrophils # (Auto) 5.1 x10^3uL (1.8-7.7) Lymphocytes # (Auto) 0.8 x10^3/uL (1.0-4.8) Monocytes # (Auto) 0.3 x10^3/uL (0.0-1.1) Eosinophils # (Auto) 0.1 x10^3/uL (0.0-0.7) Basophils # (Auto) 0.0 x10^3/uL (0.0-0.2) Prothrombin Time 15.1 SEC (11.7-14.0) Prothromb Time International Ratio 1.2 (0.8-1.1) Activated Partial Thromboplast Time 36 SEC (24-38) Sodium Level 144 mmol/L (136-145) Potassium Level 3.6 mmol/L (3.5-5.1) Chloride Level 104 mmol/L (98-107) Carbon Dioxide Level 30 mmol/L (21-32) Anion Gap 10 (6-14) Blood Urea Nitrogen 16 mg/dL (7-20) Creatinine 0.6 mg/dL (0.6-1.0) Estimated GFR (Cockcroft-Gault) 98.8 BUN/Creatinine Ratio 27 (6-20) Glucose Level 117 mg/dL (70-99) Lactic Acid Level 1.9 mmol/L (0.4-2.0) Calcium Level 9.6 mg/dL (8.5-10.1) Magnesium Level 2.0 mg/dL (1.8-2.4) Total Bilirubin 0.3 mg/dL (0.2-1.0) Aspartate Amino Transf (AST/SGOT) 20 U/L (15-37) Alanine Aminotransferase (ALT/SGPT) 18 U/L (14-59) Alkaline Phosphatase 87 U/L (46-116) Ammonia 8 mcmol/L (11-34) Creatine Kinase 27 U/L (26-192) Creatine Kinase MB (Mass) < 0.5 ng/mL (0.0-3.6) Creatine Kinase MB Relative Index 1.9 % (0-4) Troponin I Quantitative < 0.017 ng/mL (0.000-0.055) < 0.017 ng/mL (0.000-0.055) < 0.017 ng/mL (0.000-0.055) Total Protein 7.9 g/dL (6.4-8.2) Albumin 3.3 g/dL (3.4-5.0) Albumin/Globulin Ratio 0.7 (1.0-1.7) Valproic Acid (Depakene) Level 35 mcg/mL (50-100) Valproic Acid Last Dose Date Unk Valproic Acid Last Dose Time Unk Images Images EXAM: Chest, single view. HISTORY: Altered mental status. COMPARISON: 01/09/2018 FINDINGS: A frontal view of the chest obtained. There is stable mild interstitial prominence without enid congestion. There is mild stable elevation of the right hemidiaphragm. There is no pleural effusion or pneumothorax. The heart is normal in size for portable technique. IMPRESSION: No acute pulmonary finding. Electronically signed by: Zainab Galicia MD (07/03/2018 7:55 PM) [facility] DICTATED and SIGNED BY: ZAINAB GALICIA MD DATE: 07/03/181954 Radiology/Procedures Radiology/Procedures PROCEDURE: CT HEAD WO CONTRAST Examination: CT HEAD WO CONTRAST History: seizure activity Comparison/Correlation: None Findings: Axial images of the head were obtained without contrast. Atrophy is present. Mild volume loss ventriculomegaly noted. No intracranial hemorrhage. Extensive right middle cerebral arterial distribution infarct is present. This predominantly involves the posterior right frontoparietal and temporal region. Infarct involvement of the right occipital lobe is also present. Infarct involvement of the right external capsule and right thalamus noted. Mucosal thickening of ethmoid air cells noted. Bony structures are unremarkable. Impression: Extensive right middle cerebral artery distribution infarct is present. There is effacement of the right temporoparietal gyri in particular compatible with late acute or subacute infarct age. PQRS Compliance Statement: VTE Prophylaxis Ordered VTE Prophylaxis Devices: Yes VTE Pharmacological Prophylaxi: Contraindicated Assessment/Plan Assessment/Plan Impression: Altered mental status SEIZURE, acute Extensive right middle cerebral artery distribution infarct POA There is effacement of the right temporoparietal gyri on CT hx GI bleed, hematemesis / EGD 01/09 epi, clip and cautery 2017 acute blood loss anemia, upper Hx CVA and dysphagia, left side paralyzed Hx of afib on eliquis, afib, hx DVt, depression HTN CHRONIC PAIN plan seizure precautions neurology consult CONT ELIQUIS TELE DAILY LABS BP CONTROL pt/ot GIORGI PARRISH MD Jul 04, 2018 11:09
[2018-07-04 15:05] VITALS: BP 106/50
--- NOTE | 2018-07-04 15:20 | PDOC2 ---
NEUROLOGY CONSULT Date of Admission Date of Admission DATE: 07/04/18 TIME: 15:00 Reason for Consult Reason for Consult: IMPRESSION: Seizures x 2 on 07/03/18. Metabolic encephalopathy. Large right MCA infarct on 09/01/17, seizure at that time. Left hemiplegia. HTN. HLD. Obesity. RECOMMENDATIONS/PLAN: Increased Depakote to 500 mg bid. Dose adjustment per her neurologist in . She has been treated with Eliquis 5 mg bid. Continue Lipitor 40 mg HS. Neurontin 600 mg HS home regimen. Was on narcotics. OT/PT. Rehab. HISTORY OF THE PRESENT ILLNESS: This is a 72-y-old [place] origin female patient with above medical diseases had a large right MCA territory stroke on or abou 09/01/17 with seizure at that time. She was treated with Depakote 500 mg bid since 09/01/17, but was decreased to 250 mg bid since 03/27/18 due to side effects of sleepiness, then further decreased to 125 mg bid. She had 2 seizures on 07/03/18 described as generalized convulsion with LOC, eyes rolling, and stiffness lasted for several minutes each time. She was brought to the ER of [facility], and Depakote was resumed to 500 mg bid. Past Medical History Cardiovascular: AFIB, HTN, Hyperlipidemia CENTRAL NERVOUS SYSTEM: Right MCA CVA GI: GERD Past Surgical History Hernia Repair (umbilical ), Other (previous peg placement and removal ) Family History Coronary Artery Disease, Diabetes, Hypertension ALLERGY: NKDA MEDICATIONS: Refer to [facility] SOCIAL HISTORY: Lives with family. Denies smoking, drinking, and illicit drug use. REVIEW OF SYSTEMS: Constitutional: No malnutrition, weight loss, cachexia. Head: No traumatic brain or head injury. Skin: No edema, or rash. Ear: No infection. Eyes: No vision loss or color blindness. Nose: No bleeding or purulent discharges. Hearing: No hearing decrease. Neck: No injury. Breast: No history of cancer, masses,or discharges. Cardiac: HTN, HLD. Pulmonary: No COPD. GI: No GI ulcer, GI bleeding. Urinary/genital: No dysuria, hematuria, incontinence, urinary retention, UTI. Endocrinologic: No cousin face, craniofacial dysmorphism, polydactyly. Skeletomuscular: Left side hemiplegia. Neurological: see HP. Psychiatric: Denies drug use/abuse. Otherwise, not [id number] review of systems. PHYSICAL EXAMINATION: General appearance is in no acute distress. HEENT: Normocephalic and nontraumatic. Eyes, nose, ears, and throat are unremarkable. Neck is supple. No lymphadenopathy. No crepitus. Cardiovascular: S1, S2, regular rate and rhythm. Pulmonary: Clear to auscultation bilaterally. Abdomen: Bowel sounds are positive. Abdomen is soft, nontender, and nondistended. Extremities: No rash, lesions, or edema. NEUROLOGICAL EXAMINATION: Drowsiness. Not fully oriented to time, but knew place and person. PERRL. EOMI. CN: Mildly left side VII palsy. Muscle tone: Decreased in left side. No increase tone appreciated. Muscle strength: Left side 2+, right side 5- DTR: 1+ Plantar reflex: Neutral response bilaterally Gait: Unable to walk. Sensory exam: decreased temperature and vibration sense in left UE and lE> No cerebellar signs elicited. F-T-N test fine in right hand. Current Medications Current Medications Current Medications Sodium Chloride 1,000 ml @ 1,000 mls/hr 1X ONCE IV Last administered on at 17:30; Start 07/03/18 at 17:30; Stop 07/03/18 at 18:29; Status DC Lorazepam (Ativan) 1 mg 1X ONCE IV Last administered on 07/03/18at 18:15; Start 07/03/18 at 18:15; Stop 07/03/18 at 18:16; Status DC Lorazepam (Ativan) 2 mg STK-MED ONCE .ROUTE ; Start 07/03/18 at 18:12; Stop at 18:13; Status DC Ondansetron HCl (Zofran) 4 mg PRN Q8HRS PRN IV NAUSEA/VOMITING; Start 07/03/18 at 19:30; Stop 07/04/18 at 19:29 Divalproex Sodium (Depakote) 500 mg BID PO Last administered on 07/04/18at 09:01 ; Start 07/03/18 at 21:00; Stop 07/04/18 at 14:06; Status DC Amlodipine Besylate (Norvasc) 10 mg DAILY PO ; Start 07/04/18 at 09:00 Apixaban (Eliquis) 5 mg DAILY PO ; Start 07/04/18 at 09:00; Status Cancel Atorvastatin Calcium (Lipitor) 40 mg QHS PO ; Start 07/03/18 at 23:00 Fluoxetine HCl (PROzac) 20 mg DAILY PO Last administered on 07/04/18at 08:59; Start 07/04/18 at 09:00 Gabapentin (Neurontin) 600 mg HS PO Last administered on 07/03/18at 23:00; Start 07/03/18 at 23:00 Oxycodone/ Acetaminophen (Percocet 5/325) 1 tab PRN Q6HRS PRN PO MODERATE PAIN ; Start 07/03/18 at 22:15 Sucralfate (Carafate) 1 gm BIDAC PO ; Start 07/04/18 at 07:30 Pantoprazole Sodium (Protonix) 40 mg BIDAC PO Last administered on 07/04/18at 08: 59; Start 07/04/18 at 07:30 Info (Anti-Coagulation Monitoring By Pharmacy) 1 each PRN DAILY PRN MC SEE COMMENTS Last administered on 07/03/18at 23:48; Start 07/03/18 at 22:30 Oxycodone/ Acetaminophen (Percocet 5/325) 2 tab PRN Q6HRS PRN PO SEVERE PAIN; Start 07/03/18 at 22:30 Apixaban (Eliquis) 5 mg BID PO Last administered on 07/04/18at 09:01; Start at 23:00 Acetaminophen (Tylenol) 650 mg PRN Q6HRS PRN PO MILD PAIN Last administered on 07/04/18at 10:31; Start 07/04/18 at 10:30 Divalproex Sodium (Depakote Er) 250 mg DAILY PO ; Start 07/05/18 at 09:00; Status Cancel Non-Formulary Medication (Valproate Sodium (Depakene)) 250 mg Q12HR PO ; Start 07/04/18 at 21:00; Status UNV Divalproex Sodium (Depakote) 500 mg BID PO ; Start 07/04/18 at 21:00 Active Scripts Active [Pantoprazole] 40 MG Tablet.dr 40 Mg PO BIDAC Percocet 5-325 Mg Tablet (Oxycodone/Acetaminophen) 1 Each Tablet 1-2 Tab PO Q4-6HRS Reported Sucralfate 1 Gm/10 Ml Oral.susp 1 Gm PO BIDAC Divalproex Sodium 500 Mg Tablet.dr 250 Mg PO DAILY Eliquis (Apixaban) 5 Mg Tablet 5 Mg PO DAILY Depakene (Valproate Sodium) 250 Mg/5 Ml Solution 250 Mg PO Q12HR Gabapentin (Gabapentin) 400 Mg Capsule 600 Mg PO HS Fluoxetine Hcl 20 Mg Capsule 1 Cap PO DAILY Lipitor (Atorvastatin Calcium) 40 Mg Tablet 1 Tab PO QHS Amlodipine Besylate 10 Mg Tablet 10 Mg PO DAILY Allergies Allergies: Allergies Coded Allergies Type Severity Reaction Last Updated Verified No Known Drug Allergies 06/25/18 No ROS Review of System The patient denies any associated fevers, chills, headache, ear pain, rhinorrhea , sore throat, stiff neck, productive cough, chest pain, shortness of breath, back or flank pain, abdominal pain, nausea, vomiting, diarrhea, constipation, dysuria, rash, numbness, weakness, tingling, incontinence, difficulty ambulating, or diaphoresis. Physical Exam Physical Exam General: Well developed, well nourished, no acute distress, well appearing HEENT: Pupils equally round and reactive to light, EOMI, no discharge, normal conjunctiva Neck: Supple, no nuchal rigidity, no JVD, trachea midline, no tenderness Cardiac: RRR, no murmurs, no gallops, no rubs Chest/Lungs: CTAB, no wheeze, no rhonchi, no crackles Abdomen: soft, non-distended, no guarding, no peritoneal signs, non-tender Back: No tenderness Extremities: no edema, pulses intact, non-tender,capillary refill <3 sec bilateral upper and lower extremities, Neuro: Alert and oriented x 4, no focal deficits, normal speech Vitals Vitals: Vital Signs Date Time Temp Pulse Resp B/P (MAP) Pulse Ox O2 Delivery O2 Flow Rate FiO2 07/04/18 11:00 98.6 70 18 109/42 (64) 97 Room Air 98.6 07/04/18 08:00 2.0 Labs Labs Laboratory Tests Test 07/03/18 17:35 07/03/18 18:17 07/04/18 00:05 07/04/18 02:30 Urine Collection Type U cath Urine Color Yellow Urine Clarity Clear Urine pH 7.5 Urine Specific [place] 1.015 Urine Protein 100 mg/dL (NEG-TRACE) Urine Glucose (UA) Negative mg/dL (NEG) Urine Ketones (Stick) Negative mg/dL (NEG) Urine Blood Negative (NEG) Urine Nitrite Negative (NEG) Urine Bilirubin Negative (NEG) Urine Urobilinogen Dipstick 1.0 mg/dL (0.2 mg/dL) Urine Leukocyte Esterase Negative (NEG) Urine RBC Occ /HPF (0-2) Urine WBC Occ /HPF (0-4) Urine Bacteria 0 /HPF (0-FEW) Urine Mucus Slight /LPF Urine Opiates Screen Neg (NEG) Urine Methadone Screen Neg (NEG) Urine Barbiturates Neg (NEG) Urine Phencyclidine Screen Neg (NEG) Urine Amphetamine/Methamphetamine Neg (NEG) Urine Benzodiazepines Screen Neg (NEG) Urine Cocaine Screen Neg (NEG) Urine Cannabinoids Screen Neg (NEG) Urine Ethyl Alcohol Neg (NEG) White Blood Count 6.3 x10^3/uL (4.0-11.0) Red Blood Count 4.62 x10^6/uL (3.50-5.40) Hemoglobin 14.4 g/dL (12.0-15.5) Hematocrit 43.2 % (36.0-47.0) Mean Corpuscular Volume 94 fL (79-100) Mean Corpuscular Hemoglobin 31 pg (25-35) Mean Corpuscular Hemoglobin Concent 33 g/dL (31-37) Red Cell Distribution Width 14.7 % (11.5-14.5) Platelet Count 197 x10^3/uL (140-400) Neutrophils (%) (Auto) 81 % (31-73) Lymphocytes (%) (Auto) 12 % (24-48) Monocytes (%) (Auto) 5 % (0-9) Eosinophils (%) (Auto) 1 % (0-3) Basophils (%) (Auto) 1 % (0-3) Neutrophils # (Auto) 5.1 x10^3uL (1.8-7.7) Lymphocytes # (Auto) 0.8 x10^3/uL (1.0-4.8) Monocytes # (Auto) 0.3 x10^3/uL (0.0-1.1) Eosinophils # (Auto) 0.1 x10^3/uL (0.0-0.7) Basophils # (Auto) 0.0 x10^3/uL (0.0-0.2) Prothrombin Time 15.1 SEC (11.7-14.0) Prothromb Time International Ratio 1.2 (0.8-1.1) Activated Partial Thromboplast Time 36 SEC (24-38) Sodium Level 144 mmol/L (136-145) Potassium Level 3.6 mmol/L (3.5-5.1) Chloride Level 104 mmol/L (98-107) Carbon Dioxide Level 30 mmol/L (21-32) Anion Gap 10 (6-14) Blood Urea Nitrogen 16 mg/dL (7-20) Creatinine 0.6 mg/dL (0.6-1.0) Estimated GFR (Cockcroft-Gault) 98.8 BUN/Creatinine Ratio 27 (6-20) Glucose Level 117 mg/dL (70-99) Lactic Acid Level 1.9 mmol/L (0.4-2.0) Calcium Level 9.6 mg/dL (8.5-10.1) Magnesium Level 2.0 mg/dL (1.8-2.4) Total Bilirubin 0.3 mg/dL (0.2-1.0) Aspartate Amino Transf (AST/SGOT) 20 U/L (15-37) Alanine Aminotransferase (ALT/SGPT) 18 U/L (14-59) Alkaline Phosphatase 87 U/L (46-116) Ammonia 8 mcmol/L (11-34) Creatine Kinase 27 U/L (26-192) Creatine Kinase MB (Mass) < 0.5 ng/mL (0.0-3.6) Creatine Kinase MB Relative Index 1.9 % (0-4) Troponin I Quantitative < 0.017 ng/mL (0.000-0.055) < 0.017 ng/mL (0.000-0.055) < 0.017 ng/mL (0.000-0.055) Total Protein 7.9 g/dL (6.4-8.2) Albumin 3.3 g/dL (3.4-5.0) Albumin/Globulin Ratio 0.7 (1.0-1.7) Valproic Acid (Depakene) Level 35 mcg/mL (50-100) Valproic Acid Last Dose Date Unk Valproic Acid Last Dose Time Unk Laboratory Tests Test 3/1/19 17:35 07/03/18 18:17 07/04/18 00:05 07/04/18 02:30 Urine Collection Type U cath Urine Color Yellow Urine Clarity Clear Urine pH 7.5 Urine Specific [place] 1.015 Urine Protein 100 mg/dL (NEG-TRACE) Urine Glucose (UA) Negative mg/dL (NEG) Urine Ketones (Stick) Negative mg/dL (NEG) Urine Blood Negative (NEG) Urine Nitrite Negative (NEG) Urine Bilirubin Negative (NEG) Urine Urobilinogen Dipstick 1.0 mg/dL (0.2 mg/dL) Urine Leukocyte Esterase Negative (NEG) Urine RBC Occ /HPF (0-2) Urine WBC Occ /HPF (0-4) Urine Bacteria 0 /HPF (0-FEW) Urine Mucus Slight /LPF Urine Opiates Screen Neg (NEG) Urine Methadone Screen Neg (NEG) Urine Barbiturates Neg (NEG) Urine Phencyclidine Screen Neg (NEG) Urine Amphetamine/Methamphetamine Neg (NEG) Urine Benzodiazepines Screen Neg (NEG) Urine Cocaine Screen Neg (NEG) Urine Cannabinoids Screen Neg (NEG) Urine Ethyl Alcohol Neg (NEG) White Blood Count 6.3 x10^3/uL (4.0-11.0) Red Blood Count 4.62 x10^6/uL (3.50-5.40) Hemoglobin 14.4 g/dL (12.0-15.5) Hematocrit 43.2 % (36.0-47.0) Mean Corpuscular Volume 94 fL (79-100) Mean Corpuscular Hemoglobin 31 pg (25-35) Mean Corpuscular Hemoglobin Concent 33 g/dL (31-37) Red Cell Distribution Width 14.7 % (11.5-14.5) Platelet Count 197 x10^3/uL (140-400) Neutrophils (%) (Auto) 81 % (31-73) Lymphocytes (%) (Auto) 12 % (24-48) Monocytes (%) (Auto) 5 % (0-9) Eosinophils (%) (Auto) 1 % (0-3) Basophils (%) (Auto) 1 % (0-3) Neutrophils # (Auto) 5.1 x10^3uL (1.8-7.7) Lymphocytes # (Auto) 0.8 x10^3/uL (1.0-4.8) Monocytes # (Auto) 0.3 x10^3/uL (0.0-1.1) Eosinophils # (Auto) 0.1 x10^3/uL (0.0-0.7) Basophils # (Auto) 0.0 x10^3/uL (0.0-0.2) Prothrombin Time 15.1 SEC (11.7-14.0) Prothromb Time International Ratio 1.2 (0.8-1.1) Activated Partial Thromboplast Time 36 SEC (24-38) Sodium Level 144 mmol/L (136-145) Potassium Level 3.6 mmol/L (3.5-5.1) Chloride Level 104 mmol/L (98-107) Carbon Dioxide Level 30 mmol/L (21-32) Anion Gap 10 (6-14) Blood Urea Nitrogen 16 mg/dL (7-20) Creatinine 0.6 mg/dL (0.6-1.0) Estimated GFR (Cockcroft-Gault) 98.8 BUN/Creatinine Ratio 27 (6-20) Glucose Level 117 mg/dL (70-99) Lactic Acid Level 1.9 mmol/L (0.4-2.0) Calcium Level 9.6 mg/dL (8.5-10.1) Magnesium Level 2.0 mg/dL (1.8-2.4) Total Bilirubin 0.3 mg/dL (0.2-1.0) Aspartate Amino Transf (AST/SGOT) 20 U/L (15-37) Alanine Aminotransferase (ALT/SGPT) 18 U/L (14-59) Alkaline Phosphatase 87 U/L (46-116) Ammonia 8 mcmol/L (11-34) Creatine Kinase 27 U/L (26-192) Creatine Kinase MB (Mass) < 0.5 ng/mL (0.0-3.6) Creatine Kinase MB Relative Index 1.9 % (0-4) Troponin I Quantitative < 0.017 ng/mL (0.000-0.055) < 0.017 ng/mL (0.000-0.055) < 0.017 ng/mL (0.000-0.055) Total Protein 7.9 g/dL (6.4-8.2) Albumin 3.3 g/dL (3.4-5.0) Albumin/Globulin Ratio 0.7 (1.0-1.7) Valproic Acid (Depakene) Level 35 mcg/mL (50-100) Valproic Acid Last Dose Date [place] Valproic Acid Last Dose Time LAI Calderon MD Jul 04, 2018 15:20
--- NOTE | 2018-07-04 19:10 | NUR ---
per dr salmeron, pt is discharged home with self care. called script for 500 mg once daily depakote to the [facility] the [employer] [facility] [place]. left VM because the pharm was closed. pt wheeled down to the main entyrance to be picked up by family. Billy Feliciano RN
[2018-07-04] MEDS ORDERED: VALPROATE SODIUM 250 MG PO SCH (21:00)
[2018-07-04] MEDS ORDERED: DIVALPROEX DELAYED RELEASE 500 MG TABLET.DR. PO SCH (21:00)
[2018-07-05] MEDS ORDERED: DIVALPROEX EXTENDED RELEASE 250 MG TAB.ER.24H. PO SCH (09:00)
== END 2018-07-04 19:12 | disposition home or self-care (01) | DRG 100 ==
LOC: ER 17:19 → 6 SOUTH 19:22
PROVIDERS: ADMIT Internal Medicine; ATTEND Internal Medicine
DX: G40.89 Other seizures (principal); G93.41 Metabolic encephalopathy; I69.354 Hemiplegia and hemiparesis following cerebral infarction affecting left non-dominant side; E66.9 Obesity, unspecified; I48.91 Unspecified atrial fibrillation; E78.5 Hyperlipidemia, unspecified; F32.9 Major depressive disorder, single episode, unspecified; G89.29 Other chronic pain; I10 Essential (primary) hypertension; K21.9 Gastro-esophageal reflux disease without esophagitis; Z79.01 Long term (current) use of anticoagulants; Z79.899 Other long term (current) drug therapy; Z82.49 Family history of ischemic heart disease and other diseases of the circulatory system; Z83.3 Family history of diabetes mellitus; Z86.718 Personal history of other venous thrombosis and embolism; Z93.1 Gastrostomy status; Z68.27 Body mass index [BMI] 27.0-27.9, adult; I69.321 Dysphasia following cerebral infarction
CPT/HCPCS: 36415; 70450; 71045; 80053; 80164; 80307; 81001; 82140; 82553; 83605; 83735; 84484; 85025; 85610; 85730; 93005; 96361; 96374; J2060; J7030; 99285-25

== ENCOUNTER 2018-12-16 10:16 | Emergency (ER) | payer MEDICARE ==
[~2018-12-16] VITALS: Ht 149.9 cm; Wt 63.5 kg
[2018-12-16] MEDS ORDERED: IV NORMAL SALINE 1000ML BAG 1,000 ML IV SCH (11:11)
[2018-12-16] MEDS ORDERED: ONDANSETRON PF 4 MG/2 ML VIAL. IV ONE (11:15)
--- NOTE | 2018-12-16 11:18 | PHYS DOC ---
Past Medical History Past Medical History: CVA, Hypertension, Seizure, Stroke, Other Additional Past Medical Histor: hernia, ULCERS Past Surgical History: No Surgical History Alcohol Use: None Drug Use: None Adult General Chief Complaint Chief Complaint: MULTIPLE COMPLAINTS HPI HPI Patient is a 73-year-old female who presents to the emergency department for evaluation. She states that on Friday, she vomited once and vomited twice, again early this morning. She states that she has not had any blood in her emesis, and has been having normal bowel movements. She has not had any pain. She might of had a headache a few days ago she is uncertain. She has not had any new vision changes, new numbness, or new weakness. She does have left-sided deficits from a prior stroke. She does not have a headache currently. She has not had any abdominal pain. She does take Eliquis, as well as other medications. She has had a seizure in the past and is on Depakote. There are no alleviating or exacerbating factors to her symptoms. Review of Systems Review of Systems Constitutional: Denies fever or chills [] Eyes: Denies change in visual acuity, redness, or eye pain [] HENT: Denies nasal congestion or sore throat [] Respiratory: Denies cough or shortness of breath [] Cardiovascular: The patient denies any shortness of breath, chest pain, palpitations, or orthopnea [] GI: Denies abdominal pain, bloody stools or diarrhea [] : Denies dysuria or hematuria [] Musculoskeletal: Denies back pain or joint pain [] Integument: Denies rash or skin lesions [] Neurologic: Denies headache, new focal weakness or sensory changes [] Endocrine: Denies polyuria or polydipsia [] All other systems were reviewed and found to be within normal limits, except as documented in this note. Current Medications Current Medications Current Medications Medications (Trade) Dose Ordered Sig/Kylee Start Time Stop Time Status Last Admin Dose Admin Ondansetron HCl (Zofran) 4 mg 1X ONCE 12/16/18 11:15 12/16/18 11:16 DC 12/16/18 12:02 4 MG Sodium Chloride 1,000 ml @ 100 mls/hr Q10H 12/16/18 11:11 12/16/18 21:10 12/16/18 12:02 100 MLS/HR Allergies Allergies Allergies Coded Allergies Type Severity Reaction Last Updated Verified No Known Drug Allergies 06/25/18 No Physical Exam Physical Exam PHYSICAL EXAM: CONSTITUTIONAL: Well developed, well nourished HEAD: normocephalic, atraumatic EENT: PERRL, EOMI. Conjunctivae normal color, sclerae non-icteric; moist mucous membranes. NECK: Supple, non-tender; no meningismus. LUNGS: Lungs CTA, breathing even and unlabored. Normal air movement. HEART: Regular rate and rhythm, no murmur CHEST: No deformity; non-tender ABDOMEN: The abdomen is soft, and non-tender, no masses or bruits. Davis sign is absent. The lower abdomen is nontender. Normal bowel sounds are present. EXTREM: Normal ROM; no deformity, no calf tenderness. Normal pulses palpable in all extremities. There is no pedal edema. SKIN: No rash; no diaphoresis NEURO: Alert; normal speech and cognition; CN's grossly intact; there is chronic left-sided weakness, otherwise strength grossly intact without other focal deficit. BACK: No CVA TTP. Current Patient Data Vital Signs Vital Signs Date Time Temp Pulse Resp B/P (MAP) Pulse Ox O2 Delivery O2 Flow Rate FiO2 12/16/18 11:00 98.0 72 16 161/74 (103) 95 Room Air 98.0 Lab Values Laboratory Tests Test 12/16/18 11:25 12/16/18 12:40 White Blood Count 6.5 x10^3/uL (4.0-11.0) Red Blood Count 4.86 x10^6/uL (3.50-5.40) Hemoglobin 15.6 g/dL (12.0-15.5) H Hematocrit 45.6 % (36.0-47.0) Mean Corpuscular Volume 94 fL (79-100) Mean Corpuscular Hemoglobin 32 pg (25-35) Mean Corpuscular Hemoglobin Concent 34 g/dL (31-37) Red Cell Distribution Width 13.0 % (11.5-14.5) Platelet Count 196 x10^3/uL (140-400) Neutrophils (%) (Auto) 84 % (31-73) H Lymphocytes (%) (Auto) 9 % (24-48) L Monocytes (%) (Auto) 7 % (0-9) Eosinophils (%) (Auto) 0 % (0-3) Basophils (%) (Auto) 1 % (0-3) Neutrophils # (Auto) 5.5 x10^3/uL (1.8-7.7) Lymphocytes # (Auto) 0.6 x10^3/uL (1.0-4.8) L Monocytes # (Auto) 0.4 x10^3/uL (0.0-1.1) Eosinophils # (Auto) 0.0 x10^3/uL (0.0-0.7) Basophils # (Auto) 0.0 x10^3/uL (0.0-0.2) Sodium Level 137 mmol/L (136-145) Potassium Level 3.7 mmol/L (3.5-5.1) Chloride Level 98 mmol/L (98-107) Carbon Dioxide Level 29 mmol/L (21-32) Anion Gap 10 (6-14) Blood Urea Nitrogen 14 mg/dL (7-20) Creatinine 0.7 mg/dL (0.6-1.0) Estimated GFR (Cockcroft-Gault) 82.5 BUN/Creatinine Ratio 20 (6-20) Glucose Level 163 mg/dL (70-99) H Calcium Level 9.6 mg/dL (8.5-10.1) Total Bilirubin 0.5 mg/dL (0.2-1.0) Aspartate Amino Transferase (AST) 18 U/L (15-37) Alanine Aminotransferase (ALT) 18 U/L (14-59) Alkaline Phosphatase 63 U/L (46-116) Troponin I Quantitative < 0.017 ng/mL (0.000-0.055) Total Protein 7.9 g/dL (6.4-8.2) Albumin 3.4 g/dL (3.4-5.0) Albumin/Globulin Ratio 0.8 (1.0-1.7) L Lipase 68 U/L (73-393) L Valproic Acid Level 38 mcg/mL (50-100) L Valproic Acid Last Dose Date 12/16/18 Valproic Acid Last Dose Time 1111 Urine Collection Type U cath Urine Color Yellow Urine Clarity Clear Urine pH 7.0 Urine Specific [place] 1.010 Urine Protein Negative mg/dL (NEG-TRACE) Urine Glucose (UA) Negative mg/dL (NEG) Urine Ketones (Stick) Negative mg/dL (NEG) Urine Blood Negative (NEG) Urine Nitrite Positive (NEG) Urine Bilirubin Negative (NEG) Urine Urobilinogen Dipstick 0.2 mg/dL (0.2 mg/dL) Urine Leukocyte Esterase Small (NEG) Urine RBC 0 /HPF (0-2) Urine WBC 5-10 /HPF (0-4) Urine Bacteria Few /HPF (0-FEW) Laboratory Tests 12/16/18 11:25 Laboratory Tests 12/16/18 11:25 EKG EKG Normal sinus rhythm a rate of 77 beats for minute, left axis deviation, normal intervals, nonspecific ST/T changes are present. Motion artifact/tremor degrades the quality of the EKG.[] Radiology/Procedures Radiology/Procedures [ROCEDURE: CT HEAD WO CONTRAST EXAM: CT Head without IV contrast CLINICAL HISTORY: Nausea, vomiting, hypertension COMPARISON: CT head 07/03/2018 TECHNIQUE: Routine CT of the head without contrast. Soft tissues and bone windows were reviewed. PQRS compliance statement - One or more of the following individualized dose reduction techniques were utilized for this study: 1. Automated exposure control 2. Adjustment of the mA and/or kV according to patient size 3. Use of iterative reconstruction technique FINDINGS: Diffuse encephalomalacia and loss of lott-white differentiation in the right frontal, parietal and temporal regions from known chronic right infarct. Superimposed acute infarct would be difficult to exclude by CT. Subcortical, periventricular and deep white matter hypoattenuation may be seen with chronic small vessel disease. There is no evidence of hemorrhage, mass or extra-axial fluid collection. There is no mass effect or shift of the intracranial structures. There is prominence of the ventricles and sulci bilaterally consistent with generalized atrophy. The cerebellum and brainstem are unremarkable. The calvarium demonstrates no evidence of fracture or focal lesion. There is normal aeration of the visualized paranasal sinuses and mastoid air cells. The visualized portions of the orbits are normal. IMPRESSION: 1. Chronic appearing right sided infarct. Superimposed acute infarct cannot be excluded by CT imaging. If there is clinical concern for acute ischemia, MRI is recommended.] Course & Med Decision Making Course & Med Decision Making Pertinent Labs and Imaging studies reviewed. (See chart for details) 1:25 PM: The patient's condition remained stable. She did not take her morning blood pressure medication or other medications, which I encouraged her to do upon returning home. She is no longer nauseated at this time. I discussed test results, the need for close follow-up, and return precautions.[] Dragon Disclaimer Dragon Disclaimer This electronic medical record was generated, in whole or in part, using a voice recognition dictation system. Departure Departure Impression: Primary Impression: Nausea & vomiting Additional Impression: UTI (urinary tract infection) Disposition: HOME, SELF-CARE Condition: STABLE Referrals: AIRAM RICE MD (PCP) Patient Instructions: Nausea and Vomiting, Urinary Tract Infection Scripts Ondansetron Hcl (ZOFRAN) 4 Mg Tablet 1 TAB PO Q6HRS PRN for NAUSEA/VOMITING, #20 TAB Prov: GREG JACOME MD 12/16/18 Sulfamethoxazole/Trimethoprim (BACTRIM DS TABLET) 1 Each Tablet 1 TAB PO BID, #14 TAB Prov: GREG JACOME MD 12/16/18 Problem Qualifiers GREG JACOME MD Dec 16, 2018 11:18
[2018-12-16 11:46] LABS: BASO % 1 % (0-3); EOS % 0 % (0-3); HEMATOCRIT 45.6 % (36.0-47.0); HEMOGLOBIN 15.6 g/dL (12.0-15.5); LYMPH # 0.6 x10^3/uL (1.0-4.8); LYMPH % 9 % (24-48); MEAN CORPUSCULAR HEMOGLOBIN 32 pg (25-35); MEAN CORPUSCULAR HGB CONC 34 g/dL (31-37); MEAN CORPUSCULAR VOLUME 94 fL (79-100); MONO # 0.4 x10^3/uL (0.0-1.1); MONO % 7 % (0-9); NEUT # 5.5 x10^3/uL (1.8-7.7); NEUT % 84 % (31-73); PLATELET COUNT 196 x10^3/uL (140-400); RED BLOOD COUNT 4.86 x10^6/uL (3.50-5.40); WHITE BLOOD COUNT 6.5 x10^3/uL (4.0-11.0)
[2018-12-16 11:55] LABS: ANION GAP 10 (6-14); BLOOD UREA NITROGEN 14 mg/dL (7-20); BUN/CREATININE RATIO 20 (6-20); CALCIUM 9.6 mg/dL (8.5-10.1); CARBON DIOXIDE 29 mmol/L (21-32); CHLORIDE 98 mmol/L (98-107); CREATININE 0.7 mg/dL (0.6-1.0); GFR 82.5; GLUCOSE 163 mg/dL (70-99); POTASSIUM 3.7 mmol/L (3.5-5.1); SODIUM 137 mmol/L (136-145)
--- NOTE | 2018-12-16 11:55 | EKG ---
[facility] [address] [place] [id number] Test Date: 2018-12-16 Test Time: 11:23:05 Pat Name: LISA RAMÍREZ Department: Room: Gender: F Payable Representative: : 1945 Requested By: GREG JACOME Order Number: [id number] Reading MD: Measurements Intervals [place] Rate: 77 P: 35 IA: 128 QRS: -37 QRSD: 106 T: -21 QT: 470 QTc: 534 Interpretive Statements SINUS RHYTHM ABNORMAL LEFT AXIS DEVIATION T ABNORMALITY IN ANTERIOR LEADS INFERIOR LEADS PROLONGED QT ABNORMAL ECG No previous ECG available for comparison
[2018-12-16 12:00] LABS: ALBUMIN 3.4 g/dL (3.4-5.0); ALBUMIN/GLOBULIN RATIO 0.8 (1.0-1.7); ALK PHOS 63 U/L (46-116); ALT (SGPT) 18 U/L (14-59); AST (SGOT) 18 U/L (15-37); LIPASE 68 U/L (73-393); TOTAL BILIRUBIN 0.5 mg/dL (0.2-1.0); TOTAL PROTEIN 7.9 g/dL (6.4-8.2)
--- NOTE | 2018-12-16 12:01 | RAD ---
EXAM: CT Head without IV contrast CLINICAL HISTORY: Nausea, vomiting, hypertension COMPARISON: CT head 07/03/2018 TECHNIQUE: Routine CT of the head without contrast. Soft tissues and bone windows were reviewed. PQRS compliance statement - One or more of the following individualized dose reduction techniques were utilized for this study: 1. Automated exposure control 2. Adjustment of the mA and/or kV according to patient size 3. Use of iterative reconstruction technique FINDINGS: Diffuse encephalomalacia and loss of lott-white differentiation in the right frontal, parietal and temporal regions from known chronic right infarct. Superimposed acute infarct would be difficult to exclude by CT. Subcortical, periventricular and deep white matter hypoattenuation may be seen with chronic small vessel disease. There is no evidence of hemorrhage, mass or extra-axial fluid collection. There is no mass effect or shift of the intracranial structures. There is prominence of the ventricles and sulci bilaterally consistent with generalized atrophy. The cerebellum and brainstem are unremarkable. The calvarium demonstrates no evidence of fracture or focal lesion. There is normal aeration of the visualized paranasal sinuses and mastoid air cells. The visualized portions of the orbits are normal. IMPRESSION: 1. Chronic appearing right sided infarct. Superimposed acute infarct cannot be excluded by CT imaging. If there is clinical concern for acute ischemia, MRI is recommended. Electronically signed by: Jian Easton MD (12/16/2018 11:58 AM) [facility]
[2018-12-16 12:21] LABS: VAL ACID 38 mcg/mL (50-100)
[2018-12-16 12:52] LABS: BILIRUBIN,URINE NEGATIVE (NEG); CLARITY,URINE CLEAR; COLOR,URINE YELLOW; NITRITE,URINE POSITIVE (NEG); PROTEIN,URINE NEGATIVE (NEG-TRACE); UROBILINOGEN,URINE 0.2 mg/dL (0.2 mg/dL)
[2018-12-16 13:06] LABS: BACTERIA,URINE FEW /HPF (0-FEW); RBC,URINE 0 /HPF (0-2)
[2018-12-16 13:15] VITALS: BP 161/69
[2018-12-16] MEDS ORDERED: ONDA4TAB7 PO (13:28)
[2018-12-16] MEDS ORDERED: SULF1TAB24 PO (13:28)
== END 2018-12-16 13:50 | disposition home or self-care (01) ==
LOC: ER 10:16
DX: N39.0 Urinary tract infection, site not specified (principal); R11.2 Nausea with vomiting, unspecified; R51 Headache; I10 Essential (primary) hypertension; Z86.73 Personal history of transient ischemic attack (TIA), and cerebral infarction without residual deficits; Z98.890 Other specified postprocedural states
CPT/HCPCS: 36415; 70450; 80053; 80164; 81001; 83690; 84484; 85025; 87086; 93005; 96361; 96374; 99285; J2405; J7030

== ENCOUNTER → 2019-01-20 | Outpatient (CLI) | payer MEDICARE ==
[~2019-01-20] MED LIST changes: +LISI1TAB20 PO; -LISI1TAB7 PO; +ONDA4TAB7 PO; +SULF1TAB24 PO
--- NOTE | 2019-01-20 15:58 | KCIC ---
PA and lateral chest x-ray compared to portable chest radiograph dated July 03, 2018 for cough. FINDINGS: There are coarse perihilar interstitial changes, which could reflect pulmonary vascular congestion or developing perihilar infiltrates. There is elevation the right hemidiaphragm. Heart size is mildly enlarged. No definite pleural effusions. No pneumothorax. No significant osseous abnormalities. IMPRESSION: 1. Perihilar coarse interstitial changes possibly due to developing central vascular congestion versus perihilar infiltrates. Electronically signed by: Niko Kelley MD (01/20/2019 3:55 PM) [facility]
== END | disposition home or self-care (01) ==
LOC: KCIC 10:18
PROVIDERS: ATTEND Family Medicine
DX: I11.9 Hypertensive heart disease without heart failure (principal)
CPT/HCPCS: 71046

== ENCOUNTER 2019-04-01 14:04 | Emergency (ER) | payer MEDICARE ==
[~2019-04-01] VITALS: Ht 149.9 cm; Wt 68.0 kg
[~2019-04-01 14:04] MED LIST changes: +FLUO20CA19 PO; -FLUO20CA8 PO
[2019-04-01] MEDS ORDERED: ONDANSETRON PF 4 MG/2 ML VIAL. IV ONE (14:30)
[2019-04-01 14:38] LABS: BASO % 1 % (0-3); EOS % 0 % (0-3); LYMPH # 1.3 x10^3/uL (1.0-4.8); LYMPH % 15 % (24-48); MEAN CORPUSCULAR HEMOGLOBIN 32 pg (25-35); MEAN CORPUSCULAR HGB CONC 34 g/dL (31-37); MEAN CORPUSCULAR VOLUME 94 fL (79-100); MONO # 0.3 x10^3/uL (0.0-1.1); MONO % 4 % (0-9); NEUT # 6.8 x10^3/uL (1.8-7.7); NEUT % 81 % (31-73); PLATELET COUNT 231 x10^3/uL (140-400); RED BLOOD COUNT 4.99 x10^6/uL (3.50-5.40); RED CELL DISTRIBUTION WIDTH 14.2 % (11.5-14.5); WHITE BLOOD COUNT 8.5 x10^3/uL (4.0-11.0)
[2019-04-01 14:47] LABS: ANION GAP 12 (6-14); BLOOD UREA NITROGEN 16 mg/dL (7-20); BUN/CREATININE RATIO 23 (6-20); CALCIUM 9.8 mg/dL (8.5-10.1); CARBON DIOXIDE 29 mmol/L (21-32); CHLORIDE 98 mmol/L (98-107); CREATININE 0.7 mg/dL (0.6-1.0); GFR 82.5; GLUCOSE 183 mg/dL (70-99); POTASSIUM 3.8 mmol/L (3.5-5.1); SODIUM 139 mmol/L (136-145)
[2019-04-01 14:53] LABS: ALBUMIN 3.8 g/dL (3.4-5.0); ALBUMIN/GLOBULIN RATIO 0.8 (1.0-1.7); ALK PHOS 80 U/L (46-116); ALT (SGPT) 18 U/L (14-59); AST (SGOT) 17 U/L (15-37); TOTAL BILIRUBIN 0.4 mg/dL (0.2-1.0); TOTAL PROTEIN 8.4 g/dL (6.4-8.2); VAL ACID 21 mcg/mL (50-100)
[2019-04-01] MEDS ORDERED: VALPROIC ACID (AS SODIUM SALT) 500 MG in IV DEXTROSE 5% 50 ML IV STA (15:21)
[2019-04-01 16:55] LABS: BILIRUBIN,URINE NEGATIVE (NEG); CLARITY,URINE CLOUDY; COLOR,URINE YELLOW; NITRITE,URINE NEGATIVE (NEG); PH,URINE 5.5; PROTEIN,URINE 100 mg/dL (NEG-TRACE)
[2019-04-01 17:05] LABS: BACTERIA,URINE FEW /HPF (0-FEW); RBC,URINE RARE /HPF (0-2); WBC,URINE >40 /HPF (0-4)
[2019-04-01] MEDS ORDERED: NITR100C62 PO (17:41)
--- NOTE | 2019-04-01 17:42 | PHYS DOC ---
Past Medical History Past Medical History: CVA, Hypertension, Seizure, Stroke, Other Additional Past Medical Histor: hernia, ULCERS Past Surgical History: No Surgical History Alcohol Use: None Drug Use: None Adult General Chief Complaint Chief Complaint: SEIZURE HPI HPI is a 73-year-old who presents after having had a seizure episode earlier this afternoon. Patient reportedly was feeling nauseated and then had witnessed seizure activity that lasted for approximately 25-30 seconds according to and when she had come around, she had an episode of vomiting. Patient has history of seizure disorder and takes valproic acid. Patient was postictal for approximately 30 minutes after the episode but has been sleepy since. Patient denies any headache. Patient does admit to still feeling nauseated.[] Review of Systems Review of Systems Constitutional: Denies fever or chills [] Respiratory: Denies cough or shortness of breath [] Cardiovascular: No additional information not addressed in HPI [] GI: Denies abdominal pain. Complains of nausea and vomiting without diarrhea [] Neurologic: Denies headache, focal weakness or sensory changes. Positive seizure [] All other systems were reviewed and found to be within normal limits, except as documented in this note. Current Medications Current Medications Current Medications Medications (Trade) Dose Ordered Sig/Kylee Start Time Stop Time Status Last Admin Dose Admin Lorazepam (Ativan Inj) 1 mg 1X ONCE 04/01/19 14:30 04/01/19 14:32 DC 04/01/19 14:40 1 MG Ondansetron HCl (Zofran) 4 mg 1X ONCE 04/01/19 14:30 04/01/19 14:32 DC 04/01/19 14:40 4 MG Valproic Acid 500 mg/Dextrose 55 ml @ 55 mls/hr 1X STAT 04/01/19 15:21 04/01/19 16:20 DC 04/01/19 15:36 55 MLS/HR Allergies Allergies Allergies Coded Allergies Type Severity Reaction Last Updated Verified No Known Drug Allergies 06/25/18 No Physical Exam Physical Exam Constitutional: Well developed, well nourished, no acute distress, non-toxic appearance. [] HENT: Normocephalic, atraumatic, bilateral external ears normal, oropharynx moist, no oral exudates, nose normal. [] Eyes: PERRLA, EOMI, conjunctiva normal, no discharge. [] Neck: Normal range of motion, no tenderness, supple, no stridor. [] Cardiovascular: Regular rate and rhythm[] Lungs & Thorax: Bilateral breath sounds clear to auscultation [] Abdomen: Bowel sounds normal, soft, no tenderness. [] Skin: Warm, dry, no erythema, no rash. [] Extremities: No tenderness, no cyanosis, no clubbing, ROM intact, no edema. [] Neurologic: Somnolent but easily arousable, no focal deficits noted. [] Current Patient Data Vital Signs Vital Signs Date Time Temp Pulse Resp B/P (MAP) Pulse Ox O2 Delivery O2 Flow Rate FiO2 04/01/19 16:30 72 13 97 04/01/19 14:15 97.7 143/94 (110) Room Air 97.7 Lab Values Laboratory Tests Test 04/01/19 14:25 04/01/19 16:40 White Blood Count 8.5 x10^3/uL (4.0-11.0) Red Blood Count 4.99 x10^6/uL (3.50-5.40) Hemoglobin 16.0 g/dL (12.0-15.5) H Hematocrit 47.0 % (36.0-47.0) Mean Corpuscular Volume 94 fL (79-100) Mean Corpuscular Hemoglobin 32 pg (25-35) Mean Corpuscular Hemoglobin Concent 34 g/dL (31-37) Red Cell Distribution Width 14.2 % (11.5-14.5) Platelet Count 231 x10^3/uL (140-400) Neutrophils (%) (Auto) 81 % (31-73) H Lymphocytes (%) (Auto) 15 % (24-48) L Monocytes (%) (Auto) 4 % (0-9) Eosinophils (%) (Auto) 0 % (0-3) Basophils (%) (Auto) 1 % (0-3) Neutrophils # (Auto) 6.8 x10^3/uL (1.8-7.7) Lymphocytes # (Auto) 1.3 x10^3/uL (1.0-4.8) Monocytes # (Auto) 0.3 x10^3/uL (0.0-1.1) Eosinophils # (Auto) 0.0 x10^3/uL (0.0-0.7) Basophils # (Auto) 0.0 x10^3/uL (0.0-0.2) Sodium Level 139 mmol/L (136-145) Potassium Level 3.8 mmol/L (3.5-5.1) Chloride Level 98 mmol/L (98-107) Carbon Dioxide Level 29 mmol/L (21-32) Anion Gap 12 (6-14) Blood Urea Nitrogen 16 mg/dL (7-20) Creatinine 0.7 mg/dL (0.6-1.0) Estimated GFR (Cockcroft-Gault) 82.5 BUN/Creatinine Ratio 23 (6-20) H Glucose Level 183 mg/dL (70-99) H Lactic Acid Level 3.0 mmol/L (0.4-2.0) H Calcium Level 9.8 mg/dL (8.5-10.1) Total Bilirubin 0.4 mg/dL (0.2-1.0) Aspartate Amino Transferase (AST) 17 U/L (15-37) Alanine Aminotransferase (ALT) 18 U/L (14-59) Alkaline Phosphatase 80 U/L (46-116) Total Protein 8.4 g/dL (6.4-8.2) H Albumin 3.8 g/dL (3.4-5.0) Albumin/Globulin Ratio 0.8 (1.0-1.7) L Valproic Acid Level 21 mcg/mL (50-100) L Valproic Acid Last Dose Date Unk Valproic Acid Last Dose Time Unk Urine Collection Type U cath Urine Color Yellow Urine Clarity Cloudy Urine pH 5.5 Urine Specific [place] 1.020 Urine Protein 100 mg/dL (NEG-TRACE) Urine Glucose (UA) 100 mg/dL (NEG) Urine Ketones (Stick) Trace mg/dL (NEG) Urine Blood Small (NEG) Urine Nitrite Negative (NEG) Urine Bilirubin Negative (NEG) Urine Urobilinogen Dipstick 1.0 mg/dL (0.2 mg/dL) Urine Leukocyte Esterase Large (NEG) Urine RBC Rare /HPF (0-2) Urine WBC >40 /HPF (0-4) Urine Transitional Epithelial Cells Occ /LPF Urine Bacteria Few /HPF (0-FEW) Urine Mucus Mod /LPF Laboratory Tests 04/01/19 14:25 Laboratory Tests 04/01/19 14:25 EKG EKG [] Radiology/Procedures Radiology/Procedures [] Course & Med Decision Making Course & Med Decision Making Pertinent Labs and Imaging studies reviewed. (See chart for details) [] Dragon Disclaimer Dragon Disclaimer This electronic medical record was generated, in whole or in part, using a voice recognition dictation system. Departure Departure Impression: Primary Impression: Seizure Additional Impression: Urinary tract infection Disposition: HOME, SELF-CARE Condition: STABLE Referrals: AIRAM RICE MD (PCP) Patient Instructions: Seizure, Adult, Urinary Tract Infection Additional Instructions: Increase your evening dose of valproic acid at 375 mg. With your primary provider/neurologist in the next few days. Scripts Nitrofurantoin Monohyd/M-Cryst (MACROBID 100 MG CAPSULE) 100 Mg Capsule 1 CAP PO BID for 7 Days, #14 CAP 0 Refills Prov: TOMASA GONZALEZ Jr. DO 04/01/19 Problem Qualifiers Additional Impression: Urinary tract infection Urinary tract infection type: site unspecified Hematuria presence: without hematuria Qualified Codes: N39.0 - Urinary tract infection, site not specified TOMASA GONZALEZ Jr. DO Apr 01, 2019 17:42
[2019-04-01] MEDS ORDERED: NITROFURANTOIN MONOHYD/M-CRYST 100 MG CAPSULE. PO ONE (17:45)
[2019-04-01 17:50] VITALS: BP 140/58
--- NOTE | 2019-04-02 10:13 | EKG ---
[facility] [address] [place] [address] Test Date: 2019-04-01 Test Time: 14:23:17 Pat Name: LISA RAMÍREZ Department: Room: Gender: F [employer] Professor: : 1945 Requested By: TOMASA GONZALEZ Order Number: [id number] Reading MD: Measurements Intervals [place] Rate: 76 P: -39 IA: 162 QRS: -14 QRSD: 90 T: 89 QT: 470 QTc: 534 Interpretive Statements SINUS RHYTHM LEFTWARD AXIS T ABNORMALITY IN HIGH LATERAL LEADS PROLONGED QT ABNORMAL ECG No previous ECG available for comparison
== END 2019-04-01 17:59 | disposition home or self-care (01) ==
LOC: ER 14:04
DX: R56.9 Unspecified convulsions (principal); N39.0 Urinary tract infection, site not specified; I10 Essential (primary) hypertension; Z86.73 Personal history of transient ischemic attack (TIA), and cerebral infarction without residual deficits
CPT/HCPCS: 36415; 80053; 80164; 81001; 83605; 85025; 87086; 93005; 96365; 96375; 99285; J2060; J2405

== ENCOUNTER → 2020-10-17 | Outpatient (CLI) | payer MEDICARE ==
[~2020-10-17] MED LIST changes: +AMLO-187 PO; -AMLO10TA8 PO; -FLUO20CA19 PO; +FLUO20CA20 PO; +NITR100C62 PO; -SUCR1ORA11 PO; +SUCR1ORA14 PO
--- NOTE | 2020-10-17 10:36 | RAD ---
INDICATION: Reason: LT LEG EDEMA / Spl. Instructions: / History: COMPARISON: None. TECHNIQUE: Grayscale, color and doppler ultrasound images were obtained of the left lower extremity v enous vasculature. LEFT: No thrombus identified in the common femoral vein, femoral vein, popliteal vein or visualized calf ve ins. IMPRESSION: * No thrombus identified in deep venous system of the left lower extremity. * Edema of soft tissues. Electronically signed by: Pablo Garcia MD (10/17/2020 10:33 AM) [id number]
== END ==
LOC: US 09:08
PROVIDERS: ATTEND Family Medicine
DX: R60.0 Localized edema (principal)
CPT/HCPCS: 93971